=== PATIENT | female | born 1995 | race African-American/Black ===

== ENCOUNTER → 2019-12-24 10:50 | Outpatient (CLI) | payer OTHER, MEDICAID, SELFPAY ==
[2019-12-24 14:22] LABS: Hematocrit 34.1 % (36-46); Hemoglobin 11.2 g/dL (12.0-16.0)
[2019-12-24 15:44] LABS: GTT (PREG) 1 Hour PP 50gm Dose 122 mg/dL (76-139)
== END ==
PROVIDERS: PCP Family Medicine; Referring Provider Family Medicine; Visit Provider Family Medicine
DX: Z3A.26 26 weeks gestation of pregnancy (principal)
CPT/HCPCS: 36415; 82950; 85014; 85018

== ENCOUNTER → 2020-02-02 09:38 | Outpatient (CLI) | payer OTHER, MEDICAID, SELFPAY ==
--- NOTE | 2020-02-02 09:40 | DI.US.S_ITS ---
PROCEDURE: US OB LIMITED INDICATIONS: FOLLOW-UP MACROSOMIA OUTSIDE/PRIOR DATING DATA: Last menstrual period (LMP): 06/16/2019. LMP-based estimated date of delivery (WINSTON): 03/22/2020. First dating scan (date and location): 08/17/2019. Estimated date of delivery (WINSTON) from first dating scan: 03/20/2020. TECHNIQUE: Real-time scanning was performed of the fetus, with image documentation and biometric measurements. Biophysical profile was also obtained. Endovaginal scanning: Not performed COMPARISON: [facility], US, US OB > 14 WEEKS COMPLETE ANATOMY, 11/03/2019, 12:44. [facility], US, US OB < 14 WEEKS, 08/17/2019, 12:33. FINDINGS: General: A single living intrauterine gestation is present. Presentation: Vertex. Placenta: Placental position is posterior left , without previa. Amniotic fluid index: 23.4 cm, normal range is 5-24 cm. heart rate: 139 beats per minute. Maternal cervical canal: 4.8 cm long. Normal lower limit is 2.5 cm. biometrics: Biparietal diameter: 35 weeks 4 days Head circumference: 36 weeks 1 day Abdominal circumference: 34 weeks 4 days Femur length: 35 weeks 2 days Estimated gestational age from initial scan: 33 weeks 2 days. Composite gestational age from present scan: 35 weeks 3 days Estimated weight and percentile: 2574 gm; 89% Measurement variability for biometric dating: +/- 7 days from 14 weeks to 15 weeks 6 days gestation, +/- 10 days from 16 weeks to 21 weeks 6 days gestation, +/- 2 weeks from 22 weeks to 27 weeks 6 days gestation, +/- 3 weeks for 28 weeks gestation or later. weight reference: 4500 g or EFW >90/95% is considered macrosomia or large for gestational age. EFW <10% is small for gestational age. EFW 5% or less is considered intra-uterine growth restriction. IMPRESSION: 1. A single living intrauterine gestation with an estimated gestational age at the upper limits of normal. 2. weight 2574 gm at the 89th percentile. Dictated by: Nikita Barber M.D. on 02/02/2020 at 11:10 Approved by: Nikita Barber M.D. on 02/02/2020 at 11:15
== END ==
PROVIDERS: PCP Family Medicine; Referring Provider Family Medicine; Visit Provider Family Medicine
DX: O36.63X0 Maternal care for excessive fetal growth, third trimester, not applicable or unspecified (principal); Z3A.35 35 weeks gestation of pregnancy
CPT/HCPCS: 76815

== ENCOUNTER 2022-06-21 11:01 | Emergency (ER) | payer OTHER, MEDICAID, SELFPAY ==
[2022-06-21] VITALS (7 sets, daily range): BP systolic 100–130; BP diastolic 59–91; PULSE 75–86; RESP 13–23; TEMP 36.9; O2SAT 97–100; BMI 26.6
--- NOTE | 2022-06-21 11:14 | DI.CT.S_ITS ---
PROCEDURE: CT HEAD/BRAIN WO CON INDICATIONS: seizure with head injury TECHNIQUE: Noncontrast 4.5 mm thick angled axial sections acquired from the foramen magnum to the vertex, with coronal and sagittal reformats. For radiation dose reduction, the following was used: automated exposure control, adjustment of mA and/or kV according to patient size. COMPARISON: [facility], MR, MR ANGIO HEAD WITHOUT CONTRAST, 02/08/2022, 10:25. [facility], MR, MR BRAIN WITHOUT CONTRAST, 03/19/2021, 12:28. CT, SINUS SCREEN WO CONTRAST, 10/03/2012, 17:02. FINDINGS: Image quality: Excellent. CSF spaces: Basal cisterns are patent. No extra-axial fluid collections. Ventricles are normal in size and shape. Brain: No midline shift. No intracranial masses or hemorrhage. Moseley-white matter interface is normal. Skull and face: Calvarium and visualized facial bones are intact, without suspicious lesions. Sinuses: Visualized sinuses demonstrate minimal mucosal thickening. IMPRESSION: 1. No acute intracranial process. Dictated by: Madina Antony M.D. on 06/21/2022 at 12:26 Approved by: Madina Antony M.D. on 06/21/2022 at 12:29
--- NOTE | 2022-06-21 11:14 | DI.RAD.S_ITS ---
PROCEDURE: XR HAND LT MIN 3V INDICATIONS: hand pain, swelling ecchymosis TECHNIQUE: 3 views of the hand(s) acquired. COMPARISON: None. FINDINGS: Bones: Nondisplaced linear lucency at the base of the prominent proximal 5th phalanx. No intra-articular extension Carpal bones are normally aligned. No suspicious bony lesions. Soft tissues: No suspicious soft tissue calcifications. IMPRESSION: Nondisplaced proximal 5th phalanx fracture. Dictated by: Madina Antony M.D. on 06/21/2022 at 12:14 Approved by: Madina Antony M.D. on 06/21/2022 at 12:15
[2022-06-21 11:28] LABS: Add Manual Diff / Slide Review NO; Basophils Absolute Auto 0 /uL (0-100); Basophils Percent Auto 0.3 % (0-2); Eosinophils Absolute Auto 0 /uL (0-450); Eosinophils Percent Auto 0.2 % (2-4); Hematocrit 38.9 % (36-46); Lymphocytes Absolute Auto 700 /uL (1100-4500); Lymphocytes Percent Auto 7.4 % (25-40); Mean Corpuscular HGB Conc 33.5 % (30-36); Mean Corpuscular Hemoglobin 28.1 PG (26-34); Mean Corpuscular Volume 83.8 fL (80-100); Monocytes Absolute Auto 300 /uL (0-900); Monocytes Percent Auto 3.8 % (3-14); Neutrophils Absolute Auto 7900 /uL (1500-7000); Neutrophils Percent Auto 88.3 % (50-75); Platelet Count 250 X10^3/uL (150-400); Red Blood Cell Count 4.64 X10^6/uL (4.0-5.2); Red Cell Distribution Width 15.2 % (11.6-14.8)
[2022-06-21 11:49] LABS: Alanine Aminotransferase 17 IU/L (<35); Albumin 5.1 g/dL (3.5-5.0); Albumin Globulin Ratio 1.4 (1.0-2.8); Alkaline Phosphatase 88 U/L (38-126); Aspartate Aminotransferase 27 IU/L (14-36); BUN Creatinine Ratio 13.8 (6-22); Bilirubin Total 2.1 mg/dL (0.2-1.3); Blood Urea Nitrogen 8 mg/dL (7-17); Calcium 9.1 mg/dL (8.4-10.2); Carbon Dioxide 27 mmol/L (22-32); Chloride 102 mmol/L (98-107); Estimated Glomerular Filt Rate > 60 mL/min (>60); Globulin 3.6 g/dL (1.7-4.1); Glucose 112 mg/dL (70-100); HEMOLYSIS < 15 (0-50); Magnesium 1.8 mg/dL (1.6-2.3); Potassium 3.9 mmol/L (3.4-5.1); Sodium 138 mmol/L (137-145); Total Protein 8.7 g/dL (6.3-8.2)
--- NOTE | 2022-06-21 12:06 | ED_ITS ---
HPI - Seizure General Chief Complaint: Seizure Stated Complaint: 2 seizure hit head on wall/can't keep anything joe Time Seen by Provider: 06/21/22 11:14 Source: patient Mode of arrival: Wheelchair Limitations: no limitations History of Present Illness HPI Narrative: 27-year-old female smoker with a history of seizures presents with her significant other and a chief complaint of a seizure last night and then another seizure this morning. She has been having seizures for the past few years and has had a thorough evaluation with Dr. Arzola (neurologist at [facility] including MRA, MRI, EEG. She had been written prescription for lamotrigine but was resistant to fill it as she is still breast-feeding her child. She states that she also has a prescription at home for Keppra which she has filled but has also been resistant to take because of the breast-feeding but states that she is wrapped her mind around being on antiepileptics and is ready to start. Her seizure last night was about 1-2 minutes as witnessed by her significant other. It was generalized tonic-clonic in nature she had a brief postictal phase afterwards. She went to bed and had a normal sleep, woke up this morning feeling normal and had another brief seizure this time, unwitnessed. She did not bite her tongue, did not lose control of her bladder. She is had no fever or chills and denies any recent trauma. She is back at baseline has no head or neck pain. Related Data Home Medications Medication Instructions Recorded Confirmed albuterol sulfate 90 mcg/actuation 2 puff inhalation Q4-6H PRN 12/04/19 12/28/19 aerosol inhaler (ProAir HFA) fluoxetine 10 mg capsule 10 mg PO DAILY 12/04/19 12/28/19 prenat.vits,leydi,eac-msbe-opbaz 1 tab PO DAILY 12/04/19 12/28/19 Previous Rx's Medication Instructions Recorded levetiracetam 500 mg tablet 500 mg PO BID #60 tabs 06/21/22 (Keppra) Allergies Allergy/AdvReac Type Severity Reaction Status Date / Time gabapentin Allergy Severe Throat Verified 06/21/22 11:21 swelling, SOB Review of Systems Review of Systems Narrative: GENERAL: Denies chills, fatigue, malaise, fever, sweats. HEENT: Denies sinus pain, ear pain, sore throat, difficulty swallowing, dizziness. RESPIRATORY: Denies dyspnea, cough, wheezing, hemoptysis, sputum. CARDIOVASCULAR: Denies chest pain, palpitations, orthopnea, edema, GASTROINTESTINAL: Denies nausea, vomiting, abdominal pain, diarrhea, constipation, melena. : Denies dysuria, frequency, incontinence, hematuria, urinary retention. MUSCULOSKELETAL: denies weakness, joint pain, or bony pain SKIN: Denies rash, skin lesions, or other NEUROLOGIC: See HPI PSYCHIATRIC: No concerning psychosocial issues. 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 Father Family estrangement Grandmother Cancer Diabetes mellitus Thyroid disease Grandfather Hypertension CVA (cerebral vascular accident) Grandmother Family estrangement Grandfather Family estrangement Family/Other hemorrhage Thyroid disease Social History marital status: unmarried,living together number of children: 1 household members: significant other and children lives independently: Yes caregiver/support person: No housing: apartment pets and animals: Yes (2 dogs) current occupational exposures/hazards: No special giuseppe needs: No leisure activities: exercise seatbelt use: always Smoking Status: Current every day smoker Tobacco: How many years used: 1 quit status: has quit before second hand exposure: No alcohol intake: former substance use type: marijuana during the past year weight has: remained stable Smoking Status: Current every day smoker tobacco type: vaping alcohol intake frequency: holidays/special occasions only Substance Use Type: marijuana Exam Narrative Exam Narrative: GENERAL: [27] year old patient appears stated age. Well-developed patient, in mild distress. GCS 15 HEAD: Atraumatic. Normocephalic. EYES: Pupils equal round and reactive. Extraocular motions intact. No scleral icterus. No injection or drainage. ENT: Nose without bleeding, purulent drainage. Throat without erythema, tonsillar hypertrophy or exudate. Airway patent. NECK: Trachea midline. Non tender CARDIOVASCULAR: Regular rate and rhythm without murmurs, gallops, or rubs. RESPIRATORY: Clear to auscultation. Breath sounds equal bilaterally. No wheezes, rales, or rhonchi. GASTROINTESTINAL: Abdomen soft, non-tender, nondistended. EXTREMITIES: No edema or joint tenderness. BACK: Nontender without deformity or crepitance. No flank tenderness. NEURO: AOx3. SKIN: No rash or erythema of visible areas Initial Vital Signs Initial Vital Signs: Vital Signs Pulse Rate 86 06/21/22 11:10 Respiratory Rate 13 06/21/22 11:10 Pulse Oximetry 98 06/21/22 11:10 Course Orders Ordered: Discontinued Medications Acetaminophen (Acetaminophen 325 Mg Tablet) 650 mg PO NOW ONE Stop: 06/21/22 11:35 Last Admin: 06/21/22 12:10 Dose: 650 mg Documented By: LISSA Levetiracetam 500 mg/ Sodium (Chloride) 105 mls @ 420 mls/hr IV NOW ONE Stop: 06/21/22 11:32 Last Infusion: 06/21/22 12:38 Dose: 0 mls/hr Documented By: Admin: 06/21/22 12:11 Dose: 420 mls/hr Documented By: LISSA Consultations Consultation #1: discussed with Dr. Arzola regarding her evaluations and his recommendations which includes starting Keppra today, and taking 500mg PO BID Vital Signs Vital signs: Vital Signs - 8 hr 06/21/22 11:17 Temperature 98.4 F Pulse Rate 84 Respiratory Rate 16 Blood Pressure 130/91 H Pulse Oximetry 99 Oxygen Delivery Method Room Air MDM - Seizure Lab Data 06/21/22 11:20 06/21/22 11:20 Labs: Lab Results 06/21/22 06/21/22 Range/Units 11:20 11:20 WBC 9.0 (4.5-11.0) X10^3/uL RBC 4.64 (4.0-5.2) X10^6/uL Hgb 13.0 (12.0-16.0) g/dL Hct 38.9 (36-46) % MCV 83.8 (80-100) fL MCH 28.1 (26-34) PG MCHC 33.5 (30-36) % RDW 15.2 H (11.6-14.8) % Plt Count 250 (150-400) X10^3/uL Neut % (Auto) 88.3 H (50-75) % Lymph % (Auto) 7.4 L (25-40) % Rich % (Auto) 3.8 (3-14) % Eos % (Auto) 0.2 L (2-4) % Baso % (Auto) 0.3 (0-2) % Neut # (Auto) 7900 H (1480-1084) /uL Lymph # (Auto) 700 L (5422-6347) /uL Rich # (Auto) 300 (0-900) /uL Eos # (Auto) 0 (0-450) /uL Baso # (Auto) 0 (0-100) /uL Sodium 138 (137-145) mmol/L Potassium 3.9 (3.4-5.1) mmol/L Chloride 102 (98-107) mmol/L Carbon Dioxide 27 (22-32) mmol/L BUN 8 (7-17) mg/dL Creatinine 0.58 (0.52-1.04) mg/dL Estimated GFR > 60 (>60) mL/min BUN/Creatinine Ratio 13.8 (6-22) Glucose 112 H (70-100) mg/dL Calcium 9.1 (8.4-10.2) mg/dL Magnesium 1.8 (1.6-2.3) mg/dL Total Bilirubin 2.1 H (0.2-1.3) mg/dL AST 27 (14-36) IU/L ALT 17 (<35) IU/L Alkaline Phosphatase 88 (38-126) U/L Total Protein 8.7 H (6.3-8.2) g/dL Albumin 5.1 H (3.5-5.0) g/dL Globulin 3.6 (1.7-4.1) g/dL Albumin/Globulin Ratio 1.4 (1.0-2.8) MDM Narrative Medical decision making narrative: CC: 27-year-old female with seizure Complicating co-morbidities: History of seizures with report of normal EEG Data collected from: Patient Medical records reviewed: Prior notes reviewed in our EMR Differential considered, but not limited to: Epileptic seizure, secondary causes of seizure including electrolyte abnormality, infectious versus other Exam documented above, pertinent findings include: A&O x3, GCS times 15, no meningeal signs, heart rate regular, lungs clear, abdomen is soft Lab Test results independently reviewed as above. Pertinent findings: No significant abnormal findings requiring intervention Independently reviewed EKG as above Imaging studies independently reviewed: CT of the head unremarkable Consultations: Dr. Arzola (Neuro). Patient's clinical course reviewed, his prior consultation and visit with the patient reviewed. Patient recommended for discharge, recommends Keppra load and initiation of Keppra 500 b.i.d. and follow-up in the clinic Treatments: Keppra 1000 mg Re-evaluations: Patient asymptomatic for the duration of visit Discussion: Patient with known seizure history has not been taking medications due to concerns while breast-feeding had at least 1 and possibly 2 seizures. Returned to baseline, no secondary causes noted. Labs and imaging unremarkable. I consulted with the patient's neurologist who recommended Keppra load and encouragement to start taking her medications. Patient understands and agrees with initiating medications, feels quite comfortable weaning her child from breast milk. She understands return precautions would include recurrent seizures, persistent vomiting or other concerning symptoms Disposition: see below, along with detailed discharge instructions that have been reviewed with patient as well as indications for ED re-evaluation and additional outpatient follow up Discharge Plan Departure Patient Disposition: Home Clinical Impression: Seizure Instructions: DI for Seizure Disorder -- Adult Activity Restrictions/Additional Instructions: *You have been diagnosed with [seizure and nondisplaced proximal phalanx fracture of 5th finger] *What to do: *Please continue to take your regular medications as directed. [ x] New medication prescriptions sent to your pharmacy: [ [facility]] [ ] New medication written as a paper prescription [ ] No new medications given *Please follow up with your primary Neurology provider in 2-3 days, call for an appointment. Let them know you were seen in the Emergency Department and that we ask that you be seen in follow up. We will electronically transmit a record of today's note if your PCP is in our system *Please follow up with [ Paulina] of [facility] in 2-3 days, call for an appointment. Let them know you were seen in the Emergency Department and that we ask that you be seen in follow up. We will electronically transmit a record of today's note if your PCP is in our system *Return to Emergency Department if you should have any new, worsening or concerning symptoms, such as [worsening pain, significant swelling, cold extremities, numbness, tingling, weakness or other bothersome symptoms Splint Care: Keep splint clean and dry. Elevated affected body part to decrease swelling. OK to use ice pack on the affected body part. Use for 15-20 minutes each time, for 5-6x per day. If you develop worsening pain, numbness, tingling, discoloration of the affected body part, loosen the splint by loosening the SAYRA wrap, and either see your doctor for an urgent re-assessment, or return to the Emergency Department. Return to the Emergency Department for any new or worsening symptoms. *Return to Emergency Department if you should have any new, worsening or concerning symptoms, such as [fever greater than 101 F, shaking chills, worsening pain, persistent vomiting or other bothersome symptoms] Prescriptions: New levetiracetam [Keppra] 500 mg tablet 500 mg PO BID Qty: 60 0RF No Action prenat.vits,leydi,icr-dvrj-zvsuz Tablet 1 tab PO DAILY albuterol sulfate [ProAir HFA] 90 mcg/actuation HFA aerosol inhaler 2 puff INHALATION Q4-6H PRN fluoxetine 10 mg capsule 10 mg PO DAILY Referrals: Katarina Easley MD [Primary Care Provider] - Kt Gallardo MD [Physician] - Stand Alone Forms: Patient Portal/API
[2022-06-21] MEDS: ACETAMINOPHEN 325 MG TABLET 650 MG PO (12:10)
[2022-06-21] MEDS: levETIRAcetam 500 MG in SODIUM CHLORIDE 0.9% 100 ML 420 MG IV (12:11)
--- NOTE | 2022-06-21 13:41 | PC.NURSE ---
5th L finger splinted with an alumafoam splint per Dr. Godinez's request
== END 2022-06-21 13:35 | disposition home or self-care (01) ==
PROVIDERS: Emergency Provider Emergency Medicine; PCP Family Medicine
DX: G40.909 Epilepsy, unspecified, not intractable, without status epilepticus (principal)
CPT/HCPCS: 36415; 70450; 73130; 80053; 83735; 85025; 96365; 99284; J1953

== ENCOUNTER 2024-02-21 14:09 | Emergency (ER) | payer OTHER, SELFPAY ==
[2024-02-21 14:28] VITALS: BP 137/80; PULSE 85; RESP 16; TEMP 36.6; O2SAT 98; BMI 38.4
--- NOTE | 2024-02-21 15:48 | ED_ITS ---
HPI - Recheck/Abnormal Lab/Rx <Cira Mancilla PA-C - Last Filed: 02/21/24 16:19> General Chief Complaint: Recheck/Abnormal Lab/Rx Stated Complaint: Stomach pain, had A EEG weeks ago Time Seen by Provider: 02/21/24 15:48 Source: patient Mode of arrival: Ambulatory History of Present Illness HPI narrative: Cira Tabor is a pleasant 28-year-old female with a past medical history of seizures presents to the emergency department for abdominal wall itching and discomfort after having subcutaneous heparin injections 02/06/2024. Patient was hospitalized to have an EEG done earlier this month and during her hospital stay she had subcutaneous heparin injections. Since then she notes some bruising, discomfort of her anterior abdominal wall, and also itching of the anterior abdominal wall. States that she does not have pain deep within her abdomen but she has discomfort even from the waistband of her parents or her shirt rubbing against her belly. She does have some new stretch jesus on her abdomen that she reports is related to weight gain due to her seizure medications. She denies any fevers, chills, chest pain, shortness of breath, difficulty breathing, nausea, vomiting, diarrhea, constipation, dysuria, hematuria, vaginal discharge, vaginal bleeding. Related Data Home Medications Medication Instructions Recorded Confirmed albuterol sulfate 90 mcg/actuation 2 puff inhalation Q4-6H PRN 12/04/19 12/28/19 aerosol inhaler (ProAir HFA) fluoxetine 10 mg capsule 10 mg PO DAILY 12/04/19 12/28/19 prenat.vits,leydi,xpq-fdee-fpiuh 1 tab PO DAILY 12/04/19 12/28/19 Previous Rx's Medication Instructions Recorded levetiracetam 500 mg tablet 500 mg PO BID #60 tabs 06/21/22 (Keppra) loratadine 10 mg tablet 10 mg PO DAILY #30 tabs 02/21/24 triamcinolone acetonide 0.05 % 1 applic topical BID 2 weeks #110 02/21/24 topical ointment grams Allergies Allergy/AdvReac Type Severity Reaction Status Date / Time gabapentin Allergy Severe Throat Verified 06/21/22 11:21 swelling, SOB citalopram Allergy Rash Verified 02/21/24 14:34 Review of Systems <Cira Mancilla PA-C - Last Filed: 02/21/24 16:19> Review of Systems ROS Unobtainable: All systems reviewed & are unremarkable except as noted in HPI and below Patient History <Cira Mancilla PA-C - Last Filed: 02/21/24 16:19> Medical History Ganglion cyst of tendon sheath of right hand 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 Father Family estrangement Grandmother Cancer Diabetes mellitus Thyroid disease Grandfather Hypertension CVA (cerebral vascular accident) Grandmother Family estrangement Grandfather Family estrangement Family/Other hemorrhage Thyroid disease Social History marital status: unmarried,living together number of children: 1 household members: significant other and children lives independently: Yes caregiver/support person: No housing: apartment pets and animals: Yes (2 dogs) current occupational exposures/hazards: No special giuseppe needs: No leisure activities: exercise seatbelt use: always Smoking Status: Current every day smoker Tobacco: How many years used: 1 quit status: has quit before second hand exposure: No alcohol intake: former substance use type: marijuana during the past year weight has: remained stable Smoking Status: Current every day smoker tobacco type: vaping alcohol intake frequency: holidays/special occasions only Exam <Cira Mancilla PA-C - Last Filed: 02/21/24 16:19> Narrative Exam Narrative: GENERAL: 28 year old patient appears stated age. Well-developed patient, in no acute distress. HEAD: Atraumatic. Normocephalic. EYES: Extraocular motions intact. No scleral icterus. No injection or drainage. CARDIOVASCULAR: Regular rate and rhythm. RESPIRATORY: ?Nonlabored respirations. ?Speaking in clear, full sentences. ?Clear to auscultation. Breath sounds equal bilaterally. No wheezes, rales, or rhonchi. ? GASTROINTESTINAL: Abdomen soft, non-tender, nondistended. Approximately 2 cm round area of ecchymosis on left lower quadrant of abdomen. Diffuse abdominal wall stretch jesus, some erythematous, some old-appearing. EXTREMITIES: No edema or joint tenderness. NEURO: AOx3. ?Clear speech. ?Moves all 4 extremities appropriately. Initial Vital Signs Initial Vital Signs: Vital Signs Temperature 97.8 F 02/21/24 14:28 Pulse Rate 85 02/21/24 14:28 Respiratory Rate 16 02/21/24 14:28 Blood Pressure 137/80 02/21/24 14:28 Pulse Oximetry 98 02/21/24 14:28 Oxygen Delivery Method Room Air 02/21/24 14:28 <Adenike Eagle MD - Last Filed: 02/21/24 18:27> Initial Vital Signs Initial Vital Signs: Vital Signs Temperature 97.8 F 02/21/24 14:28 Pulse Rate 85 02/21/24 14:28 Respiratory Rate 16 02/21/24 14:28 Blood Pressure 137/80 02/21/24 14:28 Pulse Oximetry 98 02/21/24 14:28 Oxygen Delivery Method Room Air 02/21/24 14:28 Course <Cira Mancilla PA-C - Last Filed: 02/21/24 16:19> Orders Ordered: Discontinued Medications Loratadine (Loratadine 10 Mg Tablet) 10 mg PO NOW ONE Stop: 02/21/24 16:01 Last Admin: 02/21/24 16:05 Dose: 10 mg Documented By: FELIBERTO Vital Signs Vital signs: Vital Signs - 8 hr 02/21/24 14:28 02/21/24 16:26 Temperature 97.8 F Pulse Rate 85 75 Respiratory Rate 16 16 Blood Pressure 137/80 127/79 Pulse Oximetry 98 98 Oxygen Delivery Method Room Air Room Air <Adenike Eagle MD - Last Filed: 02/21/24 18:27> Orders Ordered: Discontinued Medications Loratadine (Loratadine 10 Mg Tablet) 10 mg PO NOW ONE Stop: 02/21/24 16:01 Last Admin: 02/21/24 16:05 Dose: 10 mg Documented By: FELIBERTO Vital Signs Vital signs: Vital Signs - 8 hr 02/21/24 14:28 02/21/24 16:26 Temperature 97.8 F Pulse Rate 85 75 Respiratory Rate 16 16 Blood Pressure 137/80 127/79 Pulse Oximetry 98 98 Oxygen Delivery Method Room Air Room Air MDM - Recheck/Abnormal Lab/Rx <Cira Mancilla PA-C - Last Filed: 02/21/24 16:19> Medical Records Attestation: I reviewed the patient's medical records. [facility] Narrative Medical decision making narrative: 28-year-old female with a past medical history of seizures presents to the emergency department for abdominal wall itching and discomfort after having subcutaneous heparin injections 02/06/2024. Differential diagnosis includes but is not limited to abdominal wall hematoma, contact dermatitis, irritated stretch jesus, UTI, shingles, etc. On exam the patient is in no acute distress, nontoxic appearing, vital signs within normal limits. Her abdomen is soft and nontender with normal bowel sounds. She does have small area of ecchymosis on the abdominal wall from prior subcutaneous injection. She does have diffuse stretch jesus over the abdomen many of which are erythematous and irritated appearing. No abscess or cellulitis of the abdominal wall. Suspect patient's symptoms are likely related to small hematomas from subcutaneous injections in addition to pruritus from stretch jesus. She has no deep palpation, abdominal exam benign. Due to patient concern I did offer further workup with labs and imaging to evaluate for potential pathology however she is agreeable to management with oral antihistamine and topical steroid at this time. We did discuss strict ER return precautions. First dose of loratadine given in the ER, I sent additional loratadine to her pharmacy in addition to topical triamcinolone. We discussed ER return precautions and strict follow up with PCP. Patient verbalized understanding of all information, is reassured, stable for discharge home. Discharge Plan Departure Patient Disposition: Home Clinical Impression: Striae distensae Abdominal wall hematoma Qualifiers: Encounter type: initial encounter Qualified Code(s): S30.1XXA - Contusion of abdominal wall, initial encounter Instructions: DI for Hematoma (Bruise) Activity Restrictions/Additional Instructions: Today you were evaluated for abdominal pain and itching after having heparin injections. Your symptoms are most likely related to small hematomas from the injections in addition to developing stretch jesus which can cause itching. I have prescribed you a daily allergy pill to take in addition to a topical steroid to help with the itching. Please return to the ER if you develop new or worsening abdominal pain, vomiting, fevers, any other concerns. Please follow up with your primary care doctor within the next 2-3 days for ER follow-up. (If you do not have a PCP you can call [phone]. ?to schedule an appointment with an [facility] Primary Care Provider) IF YOU DEVELOP ANY NEW OR WORSENING SYMPTOMS, RETURN TO THE ER! Please read the attached instructions, they highlight more specific treatments and interventions for you at home. Thank you for letting me participate in your care, Cira Mancilla PA-C Prescriptions: New loratadine 10 mg tablet 10 mg PO DAILY Qty: 30 0RF triamcinolone acetonide 0.05 % ointment 1 applic topical BID 14 Days Qty: 110 0RF No Action prenat.vits,leydi,lcj-bpqz-exech Tablet 1 tab PO DAILY albuterol sulfate [ProAir HFA] 90 mcg/actuation HFA aerosol inhaler 2 puff INHALATION Q4-6H PRN fluoxetine 10 mg capsule 10 mg PO DAILY levetiracetam [Keppra] 500 mg tablet 500 mg PO BID Qty: 60 0RF Referrals: Katarina Easley MD [Primary Care Provider] - Stand Alone Forms: Patient Portal/API/Survey ED Sign-out <Adenike Eagle MD - Last Filed: 02/21/24 18:27> Cosign ED Attending Pedroature Attestation: I was immediately available in the department for consultation throughout this patient's visit. Adenike Eagle MD
--- NOTE | 2024-02-21 15:56 | PC.NURSE ---
walked patient to fast track . pt got upset when I oriented her to the room. She started raising her voice, So, am I getting the CT Scan., this isn't the CT scan room. I told her that she will be seen by the provider and she will evaluate her and decide the appropriate course of action. She responded loudly, do you need to see the order I explained that her provider, LORI Perez would evaluate her. Witnessed by Sheridan Funes.
[2024-02-21] MEDS: LORATADINE 10 MG TABLET PO (16:05)
[2024-02-21 16:26] VITALS: BP 127/79; PULSE 75; RESP 16; O2SAT 98
== END 2024-02-21 16:26 | disposition home or self-care (01) ==
PROVIDERS: Emergency Provider Physician Assistant; PCP Family Medicine
DX: L90.6 Striae atrophicae (principal); S30.1XXA Contusion of abdominal wall, initial encounter; X58.XXXA Exposure to other specified factors, initial encounter
CPT/HCPCS: 99283